=== PATIENT | female | born 1970 | race Caucasian/White ===

== ENCOUNTER → 2024-03-15 11:10 | Outpatient (REF) | payer OTHER, SELFPAY ==
[2024-03-16 19:31] LABS: Rubella Positive
[2024-03-17 19:01] LABS: Quantiferon Mitogen minus NIL 9.96 IU/mL; Quantiferon NIL 0.04 IU/mL; Quantiferon Plus TB2 minus NIL 0.01 IU/mL (<=0.34); Quantiferon TB Gold Plus Negative (Negative)
== END ==
LOC: REG 11:10
PROVIDERS: ATTENDING PHYSICIAN Nurse Practitioner Family
DX: Z23 Encounter for immunization (principal)
CPT/HCPCS: 36415; 86480; 86735; 86762; 86765

== ENCOUNTER → 2024-08-28 13:12 | Outpatient (REF) | payer BC, SELFPAY ==
[2024-08-28 15:22] LABS: % Basophils 0.5 % (0-2); % Eosinophils 2.3 % (0-6); % Immature Granulocytes 0.4 % (0-0.5); % Lymphocytes 28.3 % (20.5-51.1); % Monocytes 9.9 % (1.7-9.3); % Neutrophils 58.6 % (42.2-75.2); Absolute Eosinophils 0.1 10^3/uL (0-0.7); Absolute Lymphocytes 1.6 10^3/uL (1.2-3.4); Absolute Monocytes 0.6 10^3/uL (0.1-0.6); Absolute Neutrophils 3.3 10^3/uL (1.4-6.5); Hematocrit 40.4 % (37.0-47.0); Hemoglobin 13.1 g/dL (12.0-16.0); Mean Corp Hgb Conc. 32.4 g/dL (33.0-37.0); Mean Corpuscular Hgb 29.1 pg (27.0-31.0); Mean Corpuscular Volume 89.8 fL (81.0-99.0); Mean Platelet Volume 10.8 fL (7.4-10.4); Nucleated Red Blood Cells % 0 %; Platelet Count 204 10^3/uL (130-400); Red Cell Dist. Width 14.1 % (11.5-14.5); White Blood Cell Count 5.7 10^3/uL (4.8-10.8)
[2024-08-28 15:41] LABS: Blood Urea Nitrogen 14 mg/dl (7-17); Glucose 91 mg/dl (70-99)
[2024-08-28 15:42] LABS: ALT (SGPT) 26 U/L (0-35); AST (SGOT) 24 U/L (14-36); Albumin 4.2 g/dl (3.5-5.0); Alkaline Phosphatase 99 U/L (38-126); Calcium 9.3 mg/dl (8.4-10.2); Carbon Dioxide 28 mmol/L (22-30); Chloride 106 mmol/L (98-107); HDL Cholesterol 49 mg/dl; LDL Cholesterol, Calculated 148 mg/dl; Potassium 4.7 mmol/L (3.5-5.1); Sodium 142 mmol/L (135-145); Total Bilirubin 0.4 mg/dl (0.2-1.3); Total Cholesterol 242 mg/dl (50-199); Total Protein 6.5 g/dl (6.3-8.2); Triglyceride 229 mg/dl (10-149); Very Low Density Lipoprotein 45 mg/dl (0-30); eGFR > 60.00
[2024-08-28 15:57] LABS: Vitamin D, 25-OH*** 29.9 ng/mL (30-80)
[2024-08-28 16:11] LABS: TSH Reflex To Free T4 2.76 uIU/ml (0.47-4.68)
== END ==
LOC: HWLAB 13:12
PROVIDERS: ATTENDING PHYSICIAN Physician Assistant Medical
DX: Z76.89 Persons encountering health services in other specified circumstances (principal); R06.09 Other forms of dyspnea; J45.30 Mild persistent asthma, uncomplicated; Z13.29 Encounter for screening for other suspected endocrine disorder; Z13.220 Encounter for screening for lipoid disorders; Z71.89 Other specified counseling; E66.01 Morbid (severe) obesity due to excess calories
CPT/HCPCS: 36415; 80053; 80061; 82306; 84443; 85025

== ENCOUNTER → 2024-09-05 15:48 | Outpatient (REF) | payer BC, SELFPAY | LOC: HWRCS 15:48 | PROVIDERS: ATTENDING PHYSICIAN Physician Assistant Medical | DX: R06.09 Other forms of dyspnea (principal); E66.01 Morbid (severe) obesity due to excess calories | CPT/HCPCS: 93306 ==

== ENCOUNTER → 2024-09-08 13:58 | Outpatient (REF) | payer BC, SELFPAY | LOC: RCS 13:58 | PROVIDERS: ATTENDING PHYSICIAN Physician Assistant Medical | DX: R06.09 Other forms of dyspnea (principal); E66.01 Morbid (severe) obesity due to excess calories | CPT/HCPCS: 93017 ==

== ENCOUNTER → 2024-11-13 09:47 | Outpatient (REF) | payer BC, SELFPAY ==
[2024-11-13 14:11] LABS: HDL Cholesterol 48 mg/dl; LDL Cholesterol, Calculated 69 mg/dl; Total Cholesterol 138 mg/dl (50-199); Triglyceride 108 mg/dl (10-149); Very Low Density Lipoprotein 21 mg/dl (0-30)
== END ==
LOC: HWLAB 09:47
PROVIDERS: ATTENDING PHYSICIAN Student in an Organized Health Care Education/Training Program
DX: E78.2 Mixed hyperlipidemia (principal)
CPT/HCPCS: 36415; 80061

== ENCOUNTER → 2024-11-28 07:53 | Outpatient (REF) | payer BC, SELFPAY | LOC: PET 07:53 | PROVIDERS: ATTENDING PHYSICIAN Student in an Organized Health Care Education/Training Program | DX: I25.9 Chronic ischemic heart disease, unspecified (principal) | CPT/HCPCS: 78431; A9555; J2785 ==